=== PATIENT | female | born 2000 | race African-American/Black ===

== ENCOUNTER 2025-07-26 21:45 | Emergency (ER) | payer SELFPAY ==
[~2025-07-26] VITALS: Ht 172.7 cm; Wt 68.0 kg
[2025-07-26 21:50] VITALS: BP 122/78; PULSE 86; RESP 18; TEMP 36.7; O2SAT 99
== END 2025-07-26 22:50 | disposition home or self-care (01) ==
LOC: ER 21:45
DX: T14.90XA Injury, unspecified, initial encounter (principal); Z04.3 Encounter for examination and observation following other accident; V89.2XXA Person injured in unspecified motor-vehicle accident, traffic, initial encounter; Y93.89 Activity, other specified; Y92.89 Other specified places as the place of occurrence of the external cause; Y99.8 Other external cause status
CPT/HCPCS: 99283